=== PATIENT | female | born 1970 | race Caucasian/White ===

== ENCOUNTER 2022-08-04 19:26 | Outpatient (REF) | payer OTHER, SELFPAY ==
--- NOTE | ~2022-08-04 | MR_ITS ---
EXAMINATION: MR CERVICAL SPINE WITHOUT CONTRAST CLINICAL INFORMATION: 51-year-old with self-reported neck pain and bilateral foot numbness with upper shoulder pain. Cervicalgia. COMPARISON: None TECHNIQUE: MRI of the cervical spine was obtained using routine sequences without contrast. FINDINGS: Alignment: There is mild lordotic reversal centered at C4-C5. There is trace anterolisthesis at C3-C4. There is also trace retrolisthesis at C4-C5 and C5-C6. Craniocervical Junction/C1-C2 Articulations: Intact and aligned. Visualized Intracranial Structures: Within normal limits. Vertebral Bodies: Slight chronic loss of height of the C5 and C6 vertebral bodies noted. Otherwise normal vertebral body heights. No nonhealed compression fractures are identified. Disc Spaces and Endplates: Moderate disc space height loss and disc desiccation at C4-C5 noted with minor spondylosis. Moderate to severe disc space height loss at C5-C6 with intradiscal degenerative signal changes and mild spondylosis with tiny Schmorl's nodes. Mild disc space height loss and disc desiccation at C6-C7 with a Schmorl's nodes and minor spondylosis. [id number] disc space height loss and disc desiccation at C7-T1. Bone Marrow: No significant marrow-replacing process or bone marrow edema. C2-C3: No disc herniation or canal stenosis. No significant DJD or neuroforaminal stenosis. C3-C4: Slight anterolisthesis noted with a small posterior disc osteophyte complex and mild flattening of the ventral dural sac without cord impingement. No significant spinal canal stenosis. No significant DJD or neuroforaminal stenosis. C4-C5: There is posterior disc osteophyte complex and a superimposed central to left paramedian extruded disc herniation, with effacement of the ventral dural sac asymmetric to the left. There is mild to moderate ventral cord deformity suggesting some degree of ventral cord impingement associated with moderate central spinal canal stenosis. Mild facet arthrosis noted on the left without significant neural foraminal stenosis. C5-C6: Broad-based posterior disc osteophyte complex asymmetric to the right with flattening of the ventral dural sac asymmetric to the right with effacement of the ventral spinal subarachnoid space on the right without cord compression. [id number] spinal canal stenosis is noted asymmetric to the right. Bilateral uncovertebral spurring is noted with mild bilateral facet arthrosis. There is mild left and moderate right-sided neural foraminal stenosis. C6-C7: Shallow broad-based central to right paramedian disc protrusion, with mild flattening of the ventral dural sac without cord impingement or significant canal stenosis. There is uncovertebral spurring, left more than right without significant facet arthrosis. Mild foraminal narrowing noted on the left without neural impingement. C7-T1: No disc herniation or canal stenosis. Moderate to severe left-sided and mild right-sided facet arthropathy noted with moderate to severe left-sided neural foraminal stenosis and probable impingement on the exiting left C8 nerve root. T1-T2: No disc herniation or canal stenosis. No significant DJD or neuroforaminal stenosis. Spinal Cord: The cervical and visualized upper thoracic spinal cord is normal in signal intensity throughout, without focal lesion, edema or syrinx. 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 Normal signal voids in the visualized major extracranial arterial vessels. MR/MR cervical spine wo con IMPRESSION: 1. Lordotic reversal centered at C4-C5 with trace anterolisthesis at C3-C4 and trace retrolisthesis at C4-C5 and C5-C6. 2. Discogenic degenerative changes primarily at C4-C5 and C5-C6 with posterior disc osteophyte complexes and a central to left paramedian disc herniation at C4-C5 with [id number] ventral cord deformity at this level suggesting some degree of ventral cord impingement with moderate spinal canal stenosis. 3. Posterior disc osteophyte complex asymmetric to the right at C5-C6 with [id number] spinal canal stenosis asymmetric to the right without cord impingement. 4. Multilevel bilateral uncovertebral arthrosis and mild degrees of facet arthrosis as described above with moderate right-sided and mild left-sided neural foraminal stenosis at C5-C6 and mild left-sided neural foraminal stenosis at C6-C7. 5. Moderate to severe left-sided neural foraminal stenosis at C7-T1 with probable left C8 nerve root impingement.
== END 2022-08-04 19:27 | disposition home or self-care (01) ==
LOC: HO.MRI 19:26
PROVIDERS: Visit Provider Nurse Practitioner Family
DX: M54.2 Cervicalgia (principal); R20.2 Paresthesia of skin; R20.0 Anesthesia of skin; R29.2 Abnormal reflex
CPT/HCPCS: 72141

== ENCOUNTER → 2022-10-31 10:27 | Outpatient (BNVA) | payer OTHER, SELFPAY | PROVIDERS: PCP Internal Medicine; Visit Provider Nurse Practitioner Family | DX: R20.0 Anesthesia of skin (principal); R20.2 Paresthesia of skin; R29.2 Abnormal reflex ==

== ENCOUNTER → 2023-02-01 09:32 | Outpatient (BNVA) | payer OTHER, SELFPAY | PROVIDERS: PCP Internal Medicine; Visit Provider Nurse Practitioner Family | DX: R20.0 Anesthesia of skin (principal); R20.2 Paresthesia of skin; R29.2 Abnormal reflex ==

== ENCOUNTER 2023-05-15 09:03 | Outpatient (AMB) | payer OTHER, SELFPAY ==
--- NOTE | 2023-05-15 09:04 | MHC.OFFVIS ---
Intake Vital Signs 05/15/23 09:07 Weight 230 lb 8 oz BP 110/76 Blood Pressure Location Lt brachial Position Sitting Pulse 71 Pulse Source Pulse Oximeter Pulse Oximetry (%) 99 Oxygen Delivery Method Room Air Intake Visit Reasons: 3m follow up tremor- LVM Intake Note: F/U Tremors, states has lowered her medication due to swelling of the joint [employer] Required: No Allergies No Known Allergies Allergy (Verified 05/15/23 09:05) HPI HPI Comments History of Present Illness Details 52 y/o female patient presents for follow up of internal tremor. Pt reports that she finished physical therapy, neck and shoulder pain resolved and movement has improved. She states that her left side headache also has resolved. Pt still has constant feeling of internal whole body tremor, but more in torso. Pt reports no difference with gabapentin 200 mg BID. Denies side effect of gabapentin. PFSH Surgical History H/O toe surgery Family History Mother HTN (hypertension) Heart disease Colon cancer Father Heart disease Social History (Updated 05/15/23 @ 09:07 by Marisela Mancilla CMA) Alcohol intake: current Alcohol intake frequency: holidays/special occasions only Patient Tobacco Use Status: Former Tobacco user Quit Date: 2002 Review of Systems Const All systems reviewed & are unremarkable except as noted in HPI and below ENT Reports Normal hearing present Neuro Reports Normal hearing present Physical Exam Vital Signs: Last Vital Signs Pulse 71 05/15/23 09:07 BP 110/76 05/15/23 09:07 Pulse Ox 99 05/15/23 09:07 Oxygen Delivery Method Room Air 05/15/23 09:07 Const General: cooperative and healthy appearing Orientation/consciousness: patient oriented x3 Neck Neck: Yes full ROM and Yes supple Resp Effort & Inspection: normal respiratory effort and able to speak in complete sentences Neuro General: patient oriented x3, gait normal, moves all extremities and no focal motor deficits Cranial nerves: Yes Bilaterally intact EOM present, Yes Normal facial strength present, Yes Midline tongue present, Yes Symmetric palate elevation present, Yes Normal hearing present, Yes Ability to bilaterally rotate head present and Yes Ability to bilaterally elevate shoulders present Cognition (Neuro): normal cognition Gait exam (Neuro): Normal gait present Motor exam (neuro): 5/5 motor strength present throughout, Pronator motor function not present, no tremor noted, Normal motor muscle tone present throughout and Motor abnormalities not present Deep tendon reflexes (DTR's): Right triceps reflex intensity grade: 2+, Left triceps reflex intensity grade: 2+, Rt Biceps (C5, C6): 2+, Left biceps reflex intensity grade: 2+, Right brachioradialis reflex intensity grade: 2+, Left brachioradialis reflex intensity grade: 2+, Right patellar reflex intensity grade: 4+ and Left patellar reflex intensity grade: 4+ Psych Appearance: grossly normal Mental Status: mental status grossly normal Speech and movement: Normal speech and movement present Affect: normal affect Attitude: cooperative Assessment & Plan Assessment & Plan (1) Cervical nerve root impingement: Code(s): G54.2 - Cervical root disorders, not elsewhere classified (2) Cervical stenosis of spinal canal: Code(s): M48.02 - Spinal stenosis, cervical region (3) Numbness and tingling in both hands: Code(s): R20.0 - Anesthesia of skin; R20.2 - Paresthesia of skin (4) Tremor: Comment: internal tremor, not visual physical tremor ? restless legs syndrome Code(s): R25.1 - Tremor, unspecified Plan Advised patient to discontinue gabapentin to 200 mg BID. Advised patient to increase her atenolol to 25 mg daily and monitor her BP regularly. Increase PO fluid intake to prevent dizziness, and light headedness. Continue to take ferrous sulfate 325 mg q every other day with vitamin C 500 mg. Medications: Changed From atenolol 12.5 mg PO DAILY To atenolol 25 mg PO DAILY 30 days 30 tabs 0RF Discontinued gabapentin Discontinued Reason: Doctor's Order 200 mg (2 x 100 mg) PO BID 30 days 120 caps 2RF Coding Level of Care Code Est Pt Level 3 (64269) Diagnoses Cervical nerve root impingement G54.2 Cervical stenosis of spinal canal M48.02 Numbness and tingling in both hands R20.0; R20.2 Tremor R25.1
[2023-05-15 09:07] VITALS: BP 110/76; PULSE 71; O2SAT 99
== END 2023-05-15 09:27 | disposition home or self-care (01) ==
PROVIDERS: Visit Provider Nurse Practitioner Family
DX: G54.2 Cervical root disorders, not elsewhere classified (principal); M48.02 Spinal stenosis, cervical region; R20.0 Anesthesia of skin; R20.2 Paresthesia of skin; R25.1 Tremor, unspecified
CPT/HCPCS: 99213

== ENCOUNTER → 2023-05-15 09:03 | Outpatient (BNVA) | payer OTHER, SELFPAY | PROVIDERS: Visit Provider Nurse Practitioner Family | DX: R20.0 Anesthesia of skin (principal); R20.2 Paresthesia of skin; R29.2 Abnormal reflex ==